=== PATIENT | male | born 1950 | race Caucasian/White ===

== ENCOUNTER 2017-12-16 14:05 | Observation (INO) ==
[2017-12-16] MEDS ORDERED: Aspirin 81 MG TAB.CHEW PO ONE (14:13)
--- NOTE | 2017-12-16 14:16 | Emergency Department Note ---
Disposition Clinical Impression: Chest pain, Paresthesia Disposition: Admitted As Inpatient Condition: Good General Adult HPI - General Chief complaint: ED General Medical Stated complaint: Facial / LUE Numbness Time Seen by Provider: 12/16/17 14:10 Source: patient Limitations: no limitations Nursing Notes Reviewed: Yes Vital Signs Reviewed: Yes - History of Present Illness Pain Scale: 4 - Related Data Allergies Allergy/AdvReac Type Severity Reaction Status Date / Time No Known Allergies Allergy Verified 12/16/17 14:13 Past Medical History - Past Medical History Medical history: Reports: other Psychiatric history: Reports: no psych history - Social History Smoking Status: Former smoker Smokeless Tobacco Status: No Alcohol use: Reports: none Drug use: Reports: none Physical Exam - General Limitations: no limitations General appearance: alert, in no apparent distress Course Vital Signs Temperature 98.1 F 12/16/17 14:08 Pulse Rate 80 12/16/17 14:08 Respiratory Rate 16 12/16/17 14:08 Blood Pressure 166/137 12/16/17 14:08 O2 Sat by Pulse Oximetry 97 12/16/17 14:08 Temperature 98.1 F 12/16/17 14:08 Pulse Rate 78 12/16/17 16:44 Respiratory Rate 16 12/16/17 16:44 Blood Pressure 170/64 12/16/17 16:44 O2 Sat by Pulse Oximetry 98 12/16/17 16:44 Oxygen Delivery Oxygen Delivery Room Air Medical Decision Making - Lab Data Result diagrams: 12/16/17 14:15 12/16/17 14:15 Lab Results 12/16/17 12/16/17 12/16/17 Range/Units 14:13 14:15 14:15 WBC 7.1 (4.3-11.1) K/mcL RBC 5.07 (4.19-5.50) M/mcL Hgb 15.2 (12.9-16.9) g/dL Hct 43.5 (37.5-50.1) % MCV 85.8 (83.0-100.0) fL MCH 30.0 (28.0-33.3) pg MCHC 34.9 (31.6-35.5) g/dL RDW 13.6 (11.5-14.5) % Plt Count 234 (140-400) K/mcL MPV 11.1 (9.4-12.4) fL Immature Gran % 0.4 (0-4) % Seg Neutrophils % 77.3 % Lymphocytes % 16.1 % Monocytes % 5.5 % Eosinophils % 0.3 % Basophils % 0.4 % Neutrophils # 5.5 (1.6-8.9) K/mcL Lymphocytes # 1.1 (0.6-4.6) K/mcL Monocytes # 0.4 (0.0-1.3) K/mcL Eosinophils # 0.0 (0.0-0.6) K/mcL Basophils # 0.0 (0.0-0.2) K/mcL Nucleated RBCs/100 WBC 0.3 H (0) /100 WBC PT 10.5 (9.4-12.1) Seconds INR 1.0 APTT 29.8 (26.0-36.0) Seconds Sodium (136-145) mEq/L Potassium (3.5-5.1) mEq/L Chloride (98-107) mEq/L Carbon Dioxide (23-29) mEq/L BUN (8-23) mg/dL Creatinine (0.70-1.30) mg/dL Est GFR ( Amer) (> 60) Est GFR (Non-Af Amer) (> 60) BUN/Creatinine Ratio (6-26) Glucose (70-105) mg/dL POC Glucose 82 (70-99) mg/dL Calculated Osmolality (280-300) Calcium (8.6-10.3) mg/dL Total Bilirubin (0.3-1.0) mg/dL Direct Bilirubin (0.0-0.2) mg/dL Indirect Bilirubin (0.0-1.2) mg/dL AST (13-39) Units/L ALT (7-52) Units/L Alkaline Phosphatase (34-104) Units/L Troponin I (< 0.04) ng/mL Serum Total Protein (6.4-8.9) g/dL Albumin (3.5-5.7) g/dL Globulin (2.4-3.5) g/dL Albumin/Globulin Ratio (1.1-2.2) Lipase (11-82) Units/L // Range/Units 14:15 WBC (4.3-11.1) K/mcL RBC (4.19-5.50) M/mcL Hgb (12.9-16.9) g/dL Hct (37.5-50.1) % MCV (83.0-100.0) fL MCH (28.0-33.3) pg MCHC (31.6-35.5) g/dL RDW (11.5-14.5) % Plt Count (140-400) K/mcL MPV (9.4-12.4) fL Immature Gran % (0-4) % Seg Neutrophils % % Lymphocytes % % Monocytes % % Eosinophils % % Basophils % % Neutrophils # (1.6-8.9) K/mcL Lymphocytes # (0.6-4.6) K/mcL Monocytes # (0.0-1.3) K/mcL Eosinophils # (0.0-0.6) K/mcL Basophils # (0.0-0.2) K/mcL Nucleated RBCs/100 WBC (0) /100 WBC PT (9.4-12.1) Seconds INR APTT (26.0-36.0) Seconds Sodium 139 (136-145) mEq/L Potassium 3.9 (3.5-5.1) mEq/L Chloride 107 (98-107) mEq/L Carbon Dioxide 24 (23-29) mEq/L BUN 16 (8-23) mg/dL Creatinine 0.96 (0.70-1.30) mg/dL Est GFR ( Amer) > 60 (> 60) Est GFR (Non-Af Amer) > 60 (> 60) BUN/Creatinine Ratio 17 (6-26) Glucose 101 (70-105) mg/dL POC Glucose (70-99) mg/dL Calculated Osmolality 289 (280-300) Calcium 9.4 (8.6-10.3) mg/dL Total Bilirubin 1.2 H (0.3-1.0) mg/dL Direct Bilirubin 0.2 (0.0-0.2) mg/dL Indirect Bilirubin 1.0 (0.0-1.2) mg/dL AST 25 (13-39) Units/L ALT 36 (7-52) Units/L Alkaline Phosphatase 112 H (34-104) Units/L Troponin I < 0.03 (< 0.04) ng/mL Serum Total Protein 6.8 (6.4-8.9) g/dL Albumin 4.4 (3.5-5.7) g/dL Globulin 2.4 (2.4-3.5) g/dL Albumin/Globulin Ratio 1.8 (1.1-2.2) Lipase 16 (11-82) Units/L Attestation Statement - Attestation Attestation: I examined this patient and my medical decision-making was reviewed with the Resident Physician. I agree with the documented findings, disposition and treatment plan as described except to the extent set forth below. Patient to the ED complaining of chest pain and paresthesias in his face and arm. Patient was coughing when he experienced the symptoms. States he felt nauseated and clammy. His been having some intermittent symptoms of left upper abdominal pain and indigestion for the past week. Patient has a history of coronary disease with one stent placed 10 years ago. He is not currently taking any medications besides aspirin and vitamins. Patient is in no distress on examination with clear lungs and heart regular rate and rhythm. Plan. Cardiac workup. Likely admission. EKG normal sinus with nonspecific ST changes. The patient is admitted. Workup was unremarkable. Concern with his risk and heart score. Chest X-Ray 12/16/17 14:14 IMPRESSION: No acute airspace disease identified. D/ / Shaka Hoover / Shaka Hoover Interpreting Provider: Shaka Hoover Abdomen/Pelvis CT 12/16/17 14:22 IMPRESSION: 1. No acute process in the abdomen or pelvis. 2. Moderately enlarged prostate. D/ / 12/16/2017 15:45:53 Bull Mancia MD / [facility] Interpreting Provider: Bull Mancia MD Head CT 12/16/17 14:22 IMPRESSION: No acute intracranial abnormality. Diffuse atrophic changes with findings suggesting chronic microvascular ischemia D/ / Rj Abel MD / Rj Abel MD Interpreting Provider: Rj bAel MD
[2017-12-16] MEDS ORDERED: Isovue-370 500 ML INFUS..BTL IV ONE (14:22)
[2017-12-16 14:31] LABS: Basophils % 0.4 %; Eosinophils % 0.3 %; Hematocrit 43.5 % (37.5-50.1); Hemoglobin 15.2 g/dL (12.9-16.9); Immature Granulocytes % 0.4 % (0-4); Lymphocytes # 1.1 K/mcL (0.6-4.6); Lymphocytes % 16.1 %; Mean Corpuscular HGB Conc 34.9 g/dL (31.6-35.5); Mean Corpuscular Volume 85.8 fL (83.0-100.0); Mean Platelet Volume 11.1 fL (9.4-12.4); Monocytes # 0.4 K/mcL (0.0-1.3); Monocytes % 5.5 %; Neutrophils # 5.5 K/mcL (1.6-8.9); Nucleated Red Blood Cells 0.3 /100 WBC (0); Platelet Count 234 K/mcL (140-400); Red Blood Count 5.07 M/mcL (4.19-5.50); Red Cell Distribution Width 13.6 % (11.5-14.5); Segmented Neutrophils % 77.3 %
[2017-12-16 14:39] LABS: Prothrombin Time 10.5 Seconds (9.4-12.1)
[2017-12-16 14:42] LABS: Activated Partial Thrombo Time 29.8 Seconds (26.0-36.0)
[2017-12-16 14:51] LABS: Troponin I < 0.03 ng/mL (< 0.04)
[2017-12-16 14:52] LABS: Alanine Aminotransferase 36 Units/L (7-52); Albumin 4.4 g/dL (3.5-5.7); Albumin/Globulin Ratio 1.8 (1.1-2.2); Alkaline Phosphatase 112 Units/L (34-104); Aspartate Amino Transferase 25 Units/L (13-39); BUN/Creatinine Ratio 17 (6-26); Bilirubin,Direct 0.2 mg/dL (0.0-0.2); Bilirubin,Total 1.2 mg/dL (0.3-1.0); Blood Urea Nitrogen 16 mg/dL (8-23); Calcium 9.4 mg/dL (8.6-10.3); Carbon Dioxide 24 mEq/L (23-29); Chloride 107 mEq/L (98-107); Globulin 2.4 g/dL (2.4-3.5); Glucose 101 mg/dL (70-105); Lipase 16 Units/L (11-82); Osmolality,Calculated 289 (280-300); Potassium 3.9 mEq/L (3.5-5.1); Sodium 139 mEq/L (136-145); Total Protein 6.8 g/dL (6.4-8.9); eGFR For African Americans > 60 (> 60); eGFR For Non-African Americans > 60 (> 60)
--- NOTE | 2017-12-16 15:49 | Emergency Department Note ---
Disposition Clinical Impression: Paresthesia Chest pain Qualifiers: Chest pain type: unspecified Qualified Code(s): R07.9 - Chest pain, unspecified Disposition: Admitted As Inpatient Condition: Good Referrals: Ayad Cole DO [Primary Care Provider] - Forms: ED Satisfaction Letter, Work/School Release General Adult HPI - General Chief complaint: ED General Medical Stated complaint: Facial / LUE Numbness Time Seen by Provider: 12/16/17 14:10 Source: patient Limitations: no limitations Nursing Notes Reviewed: Yes Vital Signs Reviewed: Yes - History of Present Illness HPI Narrative: Patient presents today for evaluation of epigastric or right upper quadrant abdominal pain chest pain and paresthesias to the face and left arm. Patient states symptoms have been going on for approximately 1 week with indigestion and burping. [place] he had epigastric pain which as he points to it is more left lower chest pain that he describes as a dull pain. Patient states he belches with no significant relief. Patient has had associated paresthesias to the face and arm during today's episode. Patient had associated diaphoresis. The patient was going to be seen by his primary care physician until it became more chest pain associated with paresthesias. She does still have left-sided abdominal pain which she describes as tender to palpation. No significant nausea or vomiting. Pain Scale: 4 - Related Data Allergies Allergy/AdvReac Type Severity Reaction Status Date / Time No Known Allergies Allergy Verified 12/16/17 14:13 Review of Systems: CONSTITUTIONAL: Diaphoresis No weight loss, fever, chills, weakness or fatigue. HEENT: Eyes: No visual changes. Ears, Nose, Throat: No hearing loss, difficulty talking or unable to swallow. SKIN: No rash or itching. CARDIOVASCULAR: Chest pain RESPIRATORY: Associated shortness of breath GASTROINTESTINAL: Abdominal pain with dyspepsia GENITOURINARY: No burning on urination or hematuria. NEUROLOGICAL: Paresthesias to left face and left arm No headache, dizziness, syncope, paralysis, ataxia. No change in bowel or bladder control. MUSCULOSKELETAL: No muscle pain, back pain, joint pain or stiffness. Past Medical History - Past Medical History Medical history: Reports: other Psychiatric history: Reports: no psych history - Social History Smoking Status: Former smoker Smokeless Tobacco Status: No Alcohol use: Reports: none Drug use: Reports: none Physical Exam General: Well appearing, nontoxic, no acute distress Head: Normocephalic Atraumatic Eyes: PERRL, EOMI ENT: Airway patent, no stridor Neck: supple, no meningismus Chest: Lungs clear to auscultation bilateral Cardiac: Regular rate and rhythm, no murmurs, rubs or gallops Abdomen: soft, mild tenderness to the left upper quadrant nondistended; no guarding, rebound, or tenderness to percussion Musculoskeletal: Calves symmetric, nontender, no palpable cord Skin: No rash, normal skin tone Neuro: Alert and Oriented to person, place, and time; No focal deficit, CN 2-12 symmetric and intact - General Limitations: no limitations General appearance: alert, in no apparent distress Course - Reevaluation(s) Reevaluation #1: Patient's blood work and CT scans do not show any abnormality. Patient's EKG is nonspecific with no sign of acute change. The patient's blood work is unremarkable. Upon reevaluation of the patient to patient's symptoms he describes left-sided chest epigastric pain that is worse throughout the day but not associated specifically with exertion associated nausea and diaphoresis with left arm tingling. Patient also has subjective face paresthesias. No objective findings as he has full sensation. Patient does have a history of CAD with [address] scan shows microvascular disease within the brain but no acute changes. Patient will need further evaluation of heart disease as well as potential further evaluation for TIA. Patient has high risk. Patient has had bedside discussion in regards to risks and benefits of further testing and is willing to stay for further evaluation. - Consultations Consultation #1: Discussed with hospitalist. Patient accepted for admission. Vital Signs Temperature 98.1 F 12/16/17 14:08 Pulse Rate 80 12/16/17 14:08 Respiratory Rate 16 12/16/17 14:08 Blood Pressure 166/137 12/16/17 14:08 O2 Sat by Pulse Oximetry 97 12/16/17 14:08 Temperature 98.1 F 12/16/17 14:08 Pulse Rate 78 12/16/17 16:44 Respiratory Rate 16 12/16/17 16:44 Blood Pressure 170/64 12/16/17 16:44 O2 Sat by Pulse Oximetry 98 12/16/17 16:44 Oxygen Delivery Oxygen Delivery Room Air Medical Decision Making - Medical Records Medical records reviewed: Yes I reviewed the patient's medical records. - Lab Data Lab results reviewed: Yes I reviewed the patient's lab results. Result diagrams: 12/16/17 14:15 12/16/17 14:15 Lab Results 12/16/17 12/16/17 12/16/17 Range/Units 14:13 14:15 14:15 WBC 7.1 (4.3-11.1) K/mcL RBC 5.07 (4.19-5.50) M/mcL Hgb 15.2 (12.9-16.9) g/dL Hct 43.5 (37.5-50.1) % MCV 85.8 (83.0-100.0) fL MCH 30.0 (28.0-33.3) pg MCHC 34.9 (31.6-35.5) g/dL RDW 13.6 (11.5-14.5) % Plt Count 234 (140-400) K/mcL MPV 11.1 (9.4-12.4) fL Immature Gran % 0.4 (0-4) % Seg Neutrophils % 77.3 % Lymphocytes % 16.1 % Monocytes % 5.5 % Eosinophils % 0.3 % Basophils % 0.4 % Neutrophils # 5.5 (1.6-8.9) K/mcL Lymphocytes # 1.1 (0.6-4.6) K/mcL Monocytes # 0.4 (0.0-1.3) K/mcL Eosinophils # 0.0 (0.0-0.6) K/mcL Basophils # 0.0 (0.0-0.2) K/mcL Nucleated RBCs/100 WBC 0.3 H (0) /100 WBC PT 10.5 (9.4-12.1) Seconds INR 1.0 APTT 29.8 (26.0-36.0) Seconds Sodium (136-145) mEq/L Potassium (3.5-5.1) mEq/L Chloride (98-107) mEq/L Carbon Dioxide (23-29) mEq/L BUN (8-23) mg/dL Creatinine (0.70-1.30) mg/dL Est GFR ( Amer) (> 60) Est GFR (Non-Af Amer) (> 60) BUN/Creatinine Ratio (6-26) Glucose (70-105) mg/dL POC Glucose 82 (70-99) mg/dL Calculated Osmolality (280-300) Calcium (8.6-10.3) mg/dL Total Bilirubin (0.3-1.0) mg/dL Direct Bilirubin (0.0-0.2) mg/dL Indirect Bilirubin (0.0-1.2) mg/dL AST (13-39) Units/L ALT (7-52) Units/L Alkaline Phosphatase (34-104) Units/L Troponin I (< 0.04) ng/mL Serum Total Protein (6.4-8.9) g/dL Albumin (3.5-5.7) g/dL Globulin (2.4-3.5) g/dL Albumin/Globulin Ratio (1.1-2.2) Lipase (11-82) Units/L //18 Range/Units 14:15 WBC (4.3-11.1) K/mcL RBC (4.19-5.50) M/mcL Hgb (12.9-16.9) g/dL Hct (37.5-50.1) % MCV (83.0-100.0) fL MCH (28.0-33.3) pg MCHC (31.6-35.5) g/dL RDW (11.5-14.5) % Plt Count (140-400) K/mcL MPV (9.4-12.4) fL Immature Gran % (0-4) % Seg Neutrophils % % Lymphocytes % % Monocytes % % Eosinophils % % Basophils % % Neutrophils # (1.6-8.9) K/mcL Lymphocytes # (0.6-4.6) K/mcL Monocytes # (0.0-1.3) K/mcL Eosinophils # (0.0-0.6) K/mcL Basophils # (0.0-0.2) K/mcL Nucleated RBCs/100 WBC (0) /100 WBC PT (9.4-12.1) Seconds INR APTT (26.0-36.0) Seconds Sodium 139 (136-145) mEq/L Potassium 3.9 (3.5-5.1) mEq/L Chloride 107 (98-107) mEq/L Carbon Dioxide 24 (23-29) mEq/L BUN 16 (8-23) mg/dL Creatinine 0.96 (0.70-1.30) mg/dL Est GFR ( Amer) > 60 (> 60) Est GFR (Non-Af Amer) > 60 (> 60) BUN/Creatinine Ratio 17 (6-26) Glucose 101 (70-105) mg/dL POC Glucose (70-99) mg/dL Calculated Osmolality 289 (280-300) Calcium 9.4 (8.6-10.3) mg/dL Total Bilirubin 1.2 H (0.3-1.0) mg/dL Direct Bilirubin 0.2 (0.0-0.2) mg/dL Indirect Bilirubin 1.0 (0.0-1.2) mg/dL AST 25 (13-39) Units/L ALT 36 (7-52) Units/L Alkaline Phosphatase 112 H (34-104) Units/L Troponin I < 0.03 (< 0.04) ng/mL Serum Total Protein 6.8 (6.4-8.9) g/dL Albumin 4.4 (3.5-5.7) g/dL Globulin 2.4 (2.4-3.5) g/dL Albumin/Globulin Ratio 1.8 (1.1-2.2) Lipase 16 (11-82) Units/L - Radiology Data Radiology results reviewed: Yes I reviewed the patient's radiology results. - EKG Data EKG #1 EKG attestation: Yes I reviewed and interpreted this EKG. EKG results narrative: EKG shows sinus rhythm with ventricular rate of 76. GA interval 146. QRS 80. QTC 416. Patient has no significant ST elevations or depressions. No previous EKG for comparison.
--- NOTE | 2017-12-16 17:37 | Internal Med History&Physical ---
Date of Encounter: 12/16/17 Time of Encounter: 17:37 Internal Medicine - H&P: HPI Chief complaint: CP History of present illness: Mr. Grayson is a 67 year old male Patient male with PMH of CAD s/p stent placement 10 years ago and currentely is not on any medication except for aspirin and PPIs presents today for evaluation of 1 week history right upper quadrant abdominal pain associated with chest pain and paresthesias of the face and left arm as well as diaphoresis. The patient was evaluated by the ER staff and both his laboratory data and ECGs were with no significant abnormalities. He was admitted to R/O ACS. Past Med Surg Social Fam HX - Past Medical History Medical history: other Psychiatric history: no psych history - Social History Smoking Status: Former smoker Smokeless Tobacco Status: No Alcohol use: none Drug use: none - Family History Mother Living Status: Age at : 34 Cause of : Leukemia Father Living Status: Cause of : Cancer Maternal Grandmother Living Status: Hx Family Neurologic Disorders: Yes (Alziehmers) Sister Living Status: Still Living Hx Family Cancer: Yes (Lymphoma) Internal Medicine - H&P: Meds Aspirin [Adult Aspirin] 81 mg PO DAILY 12/16/17 [History] Omeprazole [PriLOSEC] 20 mg PO DAILY 12/16/17 [History] Multivit-Min/FA/Lycopen/Lutein [A Thru Z Select Men 50+ Tablet] 1 tab PO DAILY 12/17/17 [History] Simvastatin [Zocor] 20 mg PO HS 30 Days #30 tablet 12/18/17 [Rx] 3 Allergy/AdvReac Type Severity Reaction Status Date / Time No Known Allergies Allergy Verified 12/16/17 14:13 All Systems PM: A 10-system review of systems was performed and is negative for pertinent findings except as documented above in the HPI. - Constitutional Constitutional: no chills, no fever(s), no night sweats - Cardiovascular Cardiovascular ROS IM: chest pain, diaphoresis, no dyspnea, no lightheadedness, no palpitations, no syncope - Respiratory Respiratory: no cough, no dyspnea, no wheezing, no excessive phlegm production - Gastrointestinal Gastrointestinal: abdominal pain, no diarrhea, no hematemesis, no hematochezia, no melena, no nausea, no vomiting - Musculoskeletal Musculoskeletal ROS IM: no numbness, no tingling - Constitutional Vitals: Temp Pulse Resp BP Pulse Ox 98.1 F 78 16 168/89 98 12/16/17 14:08 12/16/17 16:44 12/16/17 17:34 12/16/17 17:34 12/16/17 16:44 General appearance: Present: A&O X 3 - Head Head exam: Present: atraumatic, normocephalic - Eye Eye exam: Present: PERRL, conjuntiva pink, sclera anicteric Pupils: Present: PERRL - Neck Neck exam general surgery: Present: supple, trachea midline. Absent: lymphadenopathy - Respiratory Respiratory exam: Present: CTAB. Absent: accessory muscle use, rales, rhonchi, wheezes - Cardiovascular Cardiovascular exam: Present: RRR, +S1, +S2. Absent: diastolic murmur, gallop, rubs, systolic murmur - GI/Abdominal GI/Abdominal exam: Present: normal bowel sounds, soft, no peritoneal signs. Absent: distended, tenderness - Extremities Exam Extremities exam: Present: warm, radial pulses palpable and symmetrical. Absent : calf tenderness, cyanotic, pedal edema - Neurological Exam Neurological exam: Present: CN II-XII intact, oriented X3, no focal deficits. Absent: pronater drift, facial droop, speech deficit Internal Med - H&P Results - Labs CBC & Chem 7: 12/18/17 06:03 12/18/17 06:03 - Assessment and plan (1) Chest pain Status: Acute Assessment and plan: ASSESSMENT: - Chest pain DD *CAD *Muskuloskeletal CP - myofascial strain, costochondritis *GERD *Esophageal spasm *Pneumonia - no infiltrate on CXR PLAN: - cardiac enzymes x 2 q 8 hr - EKG now and in AM - ASA - O2 by NC to keep SpO2 greater than 92% - UA - Urine toxic screen - CBCD, BMP in AM - Fasting lipids - Morphine 2 mg IV q 2-4 hr PRN chest pain - Tylenol 650 mg PO q 4-6 hr PRN headache - Heparin 5000 U SQ BID - 2D Echo - Cardiology consult Qualifiers: Chest pain type: unspecified Qualified Code(s): R07.9 - Chest pain, unspecified (2) DVT prophylaxis Status: Acute Assessment and plan: We will place SCDs - Time Spent With Patient Total time spent is greater than 50% in coordination of care (as documented) at patient's floor/unit and/or counseling patient:
[2017-12-16 20:01] LABS: Bilirubin,Urine Negative (Negative); Blood,Urine Negative (Negative); Clarity,Urine Clear (Clear); Color,Urine Yellow (Yellow); Glucose,Urine (UA) Normal (Normal); Ketones,Urine 15 mg/dL (Negative); Leukocyte Esterase,Urine Negative (Negative); Nitrite,Urine Negative (Negative); Protein,Urine Negative (Neg-Trace); Specific Gravity,Urine > 1.030 (1.010-1.025); Urobilinogen,Urine Normal (Normal)
[2017-12-16] MEDS ORDERED: *HR* HYDROcodone/Acet 5/325 mg TABLET PO PRN (20:30)
[2017-12-16] MEDS ORDERED: Acetaminophen 325 MG TABLET PO PRN (20:30)
[2017-12-16] MEDS ORDERED: Naloxone 0.4 MG/ML INJ IVP PRN (20:30)
[2017-12-16] MEDS: 0.9 % Sodium Chloride 1,000 ML IVC SCH (20:56)
[2017-12-17] MEDS: 0.9 % Sodium Chloride 1,000 ML IVC SCH (04:56)
[2017-12-17] MEDS: *HR* Heparin 5,000 UNIT/ML VIAL SQ SCH ×2 (06:14→17:07)
[2017-12-17] MEDS: Aspirin Enteric Coated 81 MG Tablet PO SCH (07:49)
[2017-12-17] MEDS ORDERED: *HR* Promethazine 25 MG/ML VIAL IVP ONE (09:20)
[2017-12-17] MEDS ORDERED: Ondansetron 4 MG/2 ML VIAL IVP PRN (09:21)
[2017-12-17 10:30] LABS: Basophils % 0.4 %; Eosinophils # 0.1 K/mcL (0.0-0.6); Immature Granulocytes % 0.2 % (0-4); Lymphocytes # 0.7 K/mcL (0.6-4.6); Mean Corpuscular HGB Conc 34.1 g/dL (31.6-35.5); Mean Corpuscular Hemoglobin 29.9 pg (28.0-33.3); Mean Corpuscular Volume 87.4 fL (83.0-100.0); Mean Platelet Volume 11.1 fL (9.4-12.4); Monocytes # 0.3 K/mcL (0.0-1.3); Monocytes % 5.9 %; Platelet Count 189 K/mcL (140-400); Red Blood Count 4.69 M/mcL (4.19-5.50); Red Cell Distribution Width 13.7 % (11.5-14.5); Segmented Neutrophils % 79.5 %
[2017-12-17 10:37] LABS: INR 1.2; Prothrombin Time 12.5 Seconds (9.4-12.1)
[2017-12-17 10:39] LABS: Activated Partial Thrombo Time 29.6 Seconds (26.0-36.0)
[2017-12-17 10:50] LABS: Alanine Aminotransferase 28 Units/L (7-52); Albumin 3.7 g/dL (3.5-5.7); Albumin/Globulin Ratio 1.7 (1.1-2.2); Alkaline Phosphatase 86 Units/L (34-104); Aspartate Amino Transferase 18 Units/L (13-39); BUN/Creatinine Ratio 16 (6-26); Bilirubin,Total 1.4 mg/dL (0.3-1.0); Blood Urea Nitrogen 14 mg/dL (8-23); Calcium 8.7 mg/dL (8.6-10.3); Carbon Dioxide 27 mEq/L (23-29); Chloride 111 mEq/L (98-107); Cholesterol 233 mg/dL (< 200); Globulin 2.2 g/dL (2.4-3.5); Glucose 120 mg/dL (70-105); HDL Cholesterol 39 mg/dL (40-59); LDL Cholesterol,Calculated 180 mg/dL (0-99); Osmolality,Calculated 292 (280-300); Phosphorous 2.2 mg/dL (2.7-4.5); Potassium 3.6 mEq/L (3.5-5.1); Sodium 140 mEq/L (136-145); Total Protein 5.9 g/dL (6.4-8.9); Triglycerides 71 mg/dL (< 150); eGFR For African Americans > 60 (> 60); eGFR For Non-African Americans > 60 (> 60)
--- NOTE | 2017-12-17 12:17 | Internal Med Progress Note ---
Date of Encounter: 12/17/17 Time of Encounter: 12:13 - Assessment and plan (1) Chest pain Current Visit: Yes Status: Acute Assessment and plan: Nondiabetic, former smoker, obese patient presenting with midsternal chest pain with radiation to epigastrium, and LUQ associated with nausea/vomiting. Initial troponin negative, ECG without any ST changes concerning for ischemia. CXR negative for acute pulmonary process. No recent cardiac workup on file. Per my assessment this morning the patient is denying any chest pain. Continuing to have nausea/vomiting with meals PLAN: - cardiac enzymes x 2 q 6 hr starting now - EKG now and in AM - ASA daily - O2 by NC to keep SpO2 greater than 92% - UA negative - CBCD, BMP in AM - Fasting lipids reveals total cholesterol of 233, VLDL 14, LDL 180, HDL 39 with a cholesterol/HDL ratio of 6 - Lipase 16 - Heparin 5000 U SQ BID - 2D Echo-results pending - Consider cardiology consult pending results of stress test - Consider stress test Monday Qualifiers: Chest pain type: unspecified Qualified Code(s): R07.9 - Chest pain, unspecified (2) Nausea & vomiting Current Visit: Yes Status: Acute Assessment and plan: Nausea and vomiting X one month. Etiology unclear. Patient reports that he has been having nausea, vomiting and abdominal pain associated with eating for the last month. Denies any hematemesis, no cancer history, no family history of cancer. Former smoker. Denies any unintentional concerning weight loss, night sweats, malaise or fatigue. Noting he is having left upper quadrant abdominal pain and epigastric pain with eating. Antiemetics Oral pain medicationPRN GI consult, call in the morning as nobody is property utilization officer for the weekend; this is nonemergent Qualifiers: Vomiting type: unspecified Vomiting Intractability: unspecified Qualified Code(s): R11.2 - Nausea with vomiting, unspecified (3) Paresthesia Current Visit: Yes Status: Resolved Assessment and plan: Paresthesias have resolved, continue monitor for return of symptoms Neurological examination nonfocal CT head negative for acute intracranial abnormality (4) Left upper quadrant abdominal pain of unknown etiology Current Visit: Yes Status: Acute Assessment and plan: See above (5) DVT prophylaxis Current Visit: Yes Status: Acute Assessment and plan: Subcutaneous heparin - Time Spent With Patient Total time spent is greater than 50% in coordination of care (as documented) at patient's floor/unit and/or counseling patient: Greater than 35 minutes - Subjective Interval history: Mr. Grayson is a 67 year old male Patient male with PMH of CAD s/p stent placement 10 years ago and currentely is not on any medication except for aspirin and PPIs presents today for evaluation of 1 week history left upper quadrant abdominal pain associated with chest pain and paresthesias of the face and left arm as well as diaphoresis. Patient seen and examined at bedside today, reports chest pain is improved but continues to endorse epigastric and left upper quadrant pain, nausea and vomiting exacerbated by eating. He reports that he repeats he began to feel nauseous and sometimes vomits. Denies any hematemesis, no prior history of ulcers. Has not had a thorough GI evaluation. Continues to have nausea/ vomiting with eating. Dry heaving during examination this morning. Patient denies paresthesias to the face and arm this morning. They have not returned throughout this admission. CT of head negative for acute intracranial abnormality. Cardiology consult at - Constitutional Vitals: Temp Pulse Resp BP Pulse Ox 98.3 F 66 17 140/85 96 12/17/17 11:04 12/17/17 11:04 12/17/17 11:04 12/17/17 11:04 12/17/17 11:04 General appearance: Present: A&O X 3 - Head Head exam: Present: atraumatic, normocephalic - Eye Eye exam: Present: PERRL, conjuntiva pink, sclera anicteric Pupils: Present: PERRL - Neck Neck exam general surgery: Present: supple, trachea midline. Absent: lymphadenopathy - Respiratory Respiratory exam: Present: CTAB. Absent: accessory muscle use, rales, rhonchi, wheezes - Cardiovascular Cardiovascular exam: Present: RRR, +S1, +S2. Absent: diastolic murmur, gallop, rubs, systolic murmur - GI/Abdominal GI/Abdominal exam: Present: normal bowel sounds, soft, tenderness (LUQ), no peritoneal signs. Absent: distended, firm, guarding, hepatomegaly, mass, pulsatile mass, rebound Additional comments: Dry heaving during examination, improved with Phenergan dose - Extremities Exam Extremities exam: Present: normal inspection, warm, radial pulses palpable and symmetrical. Absent: calf tenderness, cyanotic, pedal edema - Neurological Exam Neurological exam: Present: CN II-XII intact, oriented X3, no focal deficits. Absent: pronater drift, facial droop, speech deficit - Skin Skin exam: Present: dry, intact Internal Medicine: Result - Labs CBC & Chem 7: 12/17/17 10:14 12/17/17 10:14 Labs: Short CBC 12/17/17 Range/Units 10:14 WBC 5.1 (4.3-11.1) K/mcL Hgb 14.0 (12.9-16.9) g/dL Hct 41.0 (37.5-50.1) % Plt Count 189 (140-400) K/mcL Neutrophils # 4.0 (1.6-8.9) K/mcL BMP 12/17/17 10:14 Sodium 140 Potassium 3.6 Chloride 111 H Carbon Dioxide 27 BUN 14 Creatinine 0.86 Glucose 120 H Calcium 8.7 Liver Function 12/17/17 Range/Units 10:14 Total Bilirubin 1.4 H (0.3-1.0) mg/dL AST 18 (13-39) Units/L ALT 28 (7-52) Units/L Alkaline Phosphatase 86 (34-104) Units/L Albumin 3.7 (3.5-5.7) g/dL - ABG Interpretation ABG results: PT/INR, D-dimer PT 12.5 Seconds (9.4-12.1) H 12/17/17 10:14 - Prior EKG Data Prior EKG available for review: no EKG comments: ECG, normal sinus rhythm no ST changes suggestive of ischemia per my review 12/17/17 12:20 - Impressions Impressions Chest X-Ray 12/16/17 20:33 IMPRESSION: No acute process. Findings suggestive of underlying COPD. D/ / Flaco Sanches MD / Flaco Sanches MD Interpreting Provider: Flaco Sanches MD Impressions Chest X-Ray 12/16/17 14:14 IMPRESSION: No acute airspace disease identified. D/ / Shaka Hoover / Shaka Hoover Interpreting Provider: Shaka Hoover Abdomen/Pelvis CT 12/16/17 14:22 IMPRESSION: 1. No acute process in the abdomen or pelvis. 2. Moderately enlarged prostate. D/ / 12/16/2017 15:45:53 Bull Mancia MD / nakul Interpreting Provider: Bull Mancia MD Head CT 12/16/17 14:22 IMPRESSION: No acute intracranial abnormality. Diffuse atrophic changes with findings suggesting chronic microvascular ischemia D/ / Rj Abel MD / Rj Abel MD Interpreting Provider: Rj Abel MD Chest X-Ray 12/16/17 20:33 IMPRESSION: No acute process. Findings suggestive of underlying COPD. D/ / Flaco Sanches MD / lFaco Sanches MD Interpreting Provider: Flaco Sanches MD Consult Discharge Plan - Plan Referrals: Ayad Cole DO [Primary Care Provider] -
[2017-12-17] MEDS: Sucralfate 1 GM TABLET PO SCH ×2 (17:07→21:15)
[2017-12-18] MEDS: *HR* Heparin 5,000 UNIT/ML VIAL SQ SCH ×2 (05:10→18:18)
[2017-12-18] MEDS ORDERED: Regadenoson 0.4 MG/5 ML SYRINGE IVP ONE (05:30)
[2017-12-18 07:20] LABS: BUN/Creatinine Ratio 18 (6-26); Blood Urea Nitrogen 17 mg/dL (8-23); Calcium 8.8 mg/dL (8.6-10.3); Carbon Dioxide 26 mEq/L (23-29); Chloride 111 mEq/L (98-107); Glucose 89 mg/dL (70-105); Osmolality,Calculated 295 (280-300); Potassium 3.8 mEq/L (3.5-5.1); Sodium 142 mEq/L (136-145); eGFR For African Americans > 60 (> 60); eGFR For Non-African Americans > 60 (> 60)
[2017-12-18 07:23] LABS: Basophils % 0.4 %; Eosinophils # 0.1 K/mcL (0.0-0.6); Eosinophils % 2.1 %; Hematocrit 43.3 % (37.5-50.1); Hemoglobin 14.4 g/dL (12.9-16.9); Immature Granulocytes % 0.2 % (0-4); Lymphocytes # 1.3 K/mcL (0.6-4.6); Lymphocytes % 25.4 %; Mean Corpuscular HGB Conc 33.3 g/dL (31.6-35.5); Mean Corpuscular Hemoglobin 29.1 pg (28.0-33.3); Mean Corpuscular Volume 87.7 fL (83.0-100.0); Mean Platelet Volume 11.5 fL (9.4-12.4); Monocytes # 0.5 K/mcL (0.0-1.3); Monocytes % 9.1 %; Neutrophils # 3.3 K/mcL (1.6-8.9); Platelet Count 207 K/mcL (140-400); Red Blood Count 4.94 M/mcL (4.19-5.50); Red Cell Distribution Width 13.7 % (11.5-14.5); Segmented Neutrophils % 62.8 %
[2017-12-18] MEDS: Aspirin Enteric Coated 81 MG Tablet PO SCH (10:19)
[2017-12-18] MEDS: Sucralfate 1 GM TABLET PO SCH ×3 (10:19→18:18)
--- NOTE | 2017-12-18 13:24 | Gastroenterology Consult Note ---
<Rere Malin - Last Filed: 12/18/17 13:18> Date of Encounter: 12/18/17 Time of Encounter: 11:00 - Assessment and plan (1) Nausea & vomiting Current Visit: Yes Status: Acute Assessment and plan: Has been ongoing for several months. CT abdomen was negative. plan for EGD today to r/o esophagitis, gastritis, duodenitis, PUD, MW tear, or AVM. Keep patient NPO for now. Patient educated regarding lifestyle modifications including: (1) avoidance of foods that may precipitate reflux (eg, coffee, alcohol, chocolate, fatty foods) . (2) avoidance of acidic foods that may precipitate heartburn (eg, citrus, carbonated drinks, spicy foods). (3) adoption of behaviors that may reduce esophageal acid exposure (see weight loss, smoking cessation, raising the head of the bed, and avoiding recumbency for 2-3 hours after meals). Qualifiers: Vomiting type: unspecified Vomiting Intractability: unspecified Qualified Code(s): R11.2 - Nausea with vomiting, unspecified (2) Left upper quadrant abdominal pain of unknown etiology Current Visit: Yes Status: Acute - Time Spent With Patient Total time spent is greater than 50% in coordination of care (as documented) at patient's floor/unit and/or counseling patient: GI History of Present Illness - Data of Consult Patient: new to practice Consult date: 12/18/17 Requesting Physician: Joanne Arita - Consult Narrative Reason for consult: LUQ abdominal pain, nausea and vomiting History of present illness: Mr. Grayson is a 67 year old male patient male with PMH of CAD s/p stent placement 10 years ago and currentely is not on any medication except for aspirin and PPIs. He has a longstanding history of GERD, states was well controlled on prescription prevacid and then his insurance stopped paying for it. He has been taking OTC prevacid with less relief. He presented with right upper quadrant abdominal pain associated with chest pain and paresthesias of the face and left arm as well as diaphoresis. The patient was evaluated by the ER staff and both his laboratory data and ECGs were with no significant abnormalities. He was admitted to R/O ACS. CT abdomen shows no acute process. LVEF 60-65%. Stress test was normal. He states he has been having the same pain for several months as well as nausea and vomiting after he eats. procedures: none NSAIDS: asa 81 mg Anticoagulants: none Past Med Surg Social Fam HX - Past Medical History Medical history: other Psychiatric history: no psych history - Social History Smoking Status: Former smoker Smokeless Tobacco Status: No Alcohol use: none Drug use: none - Family History Mother Living Status: Age at : 34 Cause of : Leukemia Father Living Status: Cause of : Cancer Maternal Grandmother Living Status: Hx Family Neurologic Disorders: Yes (Alziehmers) Sister Living Status: Still Living Hx Family Cancer: Yes (Lymphoma) Review of Systems: GI: as per [place] GENERAL: denies fever, has some chills EYES: denies yellow discoloration ENT: denies pain with swallowing or difficulty swallowing CARDIO: denies chest pain, palpitations RESP: No Shortness of breath with exertion : denies change in color of urine NEURO: denies any weakness HEME: Denies any bruising MS: denies joint pain, joint swelling or back pain. DERM: denies rash or itching PSYCH: Denies history of anxiety or depression - Constitutional Vitals: Temp Pulse Resp BP Pulse Ox 97.8 F 64 15 132/90 97 12/18/17 11:11 12/18/17 11:11 12/18/17 11:11 12/18/17 11:11 12/18/17 11:11 Exam: CONSTITUTIONAL:~alert, no acute distress.~HEAD:~normocephalic.~EYES:~no jaundice.~NECK:~no obvious swelling.~HEART:~regular rate and rhythm, no murmurs. ~LUNGS:~bilateral good air entry.~ABDOMEN:~non distended, soft, non tander, no masses pulpable, no organomegaly.~RECTAL EXAM:~Deferred.~EXTREMITIES:~no clubbing, cyanosis or edema.~SKIN:~no stigmata of chronic liver disease.~ NEUROLOGIC:~no obvious focal defect.~~~~ Results - Labs CBC & Chem 7: 12/18/17 06:03 12/18/17 06:03 Labs: Last Result Calcium 8.8 mg/dL (8.6-10.3) 12/18/17 06:03 Troponin I < 0.03 ng/mL (< 0.04) 12/17/17 19:12 Triglycerides 71 mg/dL (< 150) 12/17/17 10:14 Entire Visit Hgb 14.4 g/dL (12.9-16.9) 12/18/17 06:03 Hct 43.3 % (37.5-50.1) 12/18/17 06:03 PT 12.5 Seconds (9.4-12.1) H 12/17/17 10:14 Total Bilirubin 1.4 mg/dL (0.3-1.0) H 12/17/17 10:14 AST 18 Units/L (13-39) 12/17/17 10:14 ALT 28 Units/L (7-52) 12/17/17 10:14 Lipase 16 Units/L (11-82) 12/16/17 14:15 - ABG ABG results: PT/INR, D-dimer PT 12.5 Seconds (9.4-12.1) H 12/17/17 10:14 - Impressions Impressions Echocardiogram 12/17/17 20:54 Impressions: LVEF 60-65%. Normal LV chamber size, wall thickness and function. Moderate left ventricular diastolic dysfunction. Normal right ventricular structure and function. No evidence of pulmonary hypertension. No significant valvular dysfunction. Findings: Study Quality * Technically adequate exam. ECG Findings * Normal sinus rhythm. Left Ventricle * LVEF 60-65%. * Normal LV chamber size, wall thickness and function. * Moderate left ventricular diastolic dysfunction. Right Ventricle * Normal right ventricular structure and function. Left Atrium * Mild to moderately dilated left atrium. Right Atrium * Mildly dilated right atrium. Aortic Valve * Trileaflet aortic valve with normal function. * No aortic stenosis. * No aortic regurgitation. Mitral Valve * Normal mitral valve structure and function. * No mitral regurgitation. * No mitral stenosis. Tricuspid Valve * Normal tricuspid valve structure and function. * Trace tricuspid regurgitation. * No evidence of pulmonary hypertension. Pulmonic Valve * Pulmonic valve is not well visualized. Aorta * Normally sized aortic root. Pericardium * The pericardium appears normal. IVC * Normal IVC dimensions and inspiratory collapse. Pulmonary Artery * Normal visualized portions of the main pulmonary artery. Consult Discharge Plan - Plan Referrals: Ayad Cole DO [Primary Care Provider] - 12/26/17 12:00 pm <Gul,June - Last Filed: 12/18/17 17:34> Date of Encounter: 12/18/17 Time of Encounter: 14:00 - Time Spent With Patient Total time spent is greater than 50% in coordination of care (as documented) at patient's floor/unit and/or counseling patient: GI History of Present Illness - Data of Consult Requesting Physician: Joanne Arita - Consult Narrative History of present illness: Mr. Grayson is a 67 year old male - Constitutional Vitals: Temp Pulse Resp BP Pulse Ox 97.9 F 86 14 132/84 96 12/18/17 14:43 12/18/17 16:00 12/18/17 16:00 12/18/17 16:00 12/18/17 16:00 Results - Labs CBC & Chem 7: 12/18/17 06:03 12/18/17 06:03 Labs: Last Result Calcium 8.8 mg/dL (8.6-10.3) 12/18/17 06:03 Troponin I < 0.03 ng/mL (< 0.04) 12/17/17 19:12 Triglycerides 71 mg/dL (< 150) 12/17/17 10:14 Entire Visit Hgb 14.4 g/dL (12.9-16.9) 12/18/17 06:03 Hct 43.3 % (37.5-50.1) 12/18/17 06:03 PT 12.5 Seconds (9.4-12.1) H 12/17/17 10:14 Total Bilirubin 1.4 mg/dL (0.3-1.0) H 12/17/17 10:14 AST 18 Units/L (13-39) 12/17/17 10:14 ALT 28 Units/L (7-52) 12/17/17 10:14 Lipase 16 Units/L (11-82) 12/16/17 14:15 - ABG ABG results: PT/INR, D-dimer PT 12.5 Seconds (9.4-12.1) H 12/17/17 10:14 - Impressions Impressions Echocardiogram 12/17/17 20:54 Impressions: LVEF 60-65%. Normal LV chamber size, wall thickness and function. Moderate left ventricular diastolic dysfunction. Normal right ventricular structure and function. No evidence of pulmonary hypertension. No significant valvular dysfunction. Findings: Study Quality * Technically adequate exam. ECG Findings * Normal sinus rhythm. Left Ventricle * LVEF 60-65%. * Normal LV chamber size, wall thickness and function. * Moderate left ventricular diastolic dysfunction. Right Ventricle * Normal right ventricular structure and function. Left Atrium * Mild to moderately dilated left atrium. Right Atrium * Mildly dilated right atrium. Aortic Valve * Trileaflet aortic valve with normal function. * No aortic stenosis. * No aortic regurgitation. Mitral Valve * Normal mitral valve structure and function. * No mitral regurgitation. * No mitral stenosis. Tricuspid Valve * Normal tricuspid valve structure and function. * Trace tricuspid regurgitation. * No evidence of pulmonary hypertension. Pulmonic Valve * Pulmonic valve is not well visualized. Aorta * Normally sized aortic root. Pericardium * The pericardium appears normal. IVC * Normal IVC dimensions and inspiratory collapse. Pulmonary Artery * Normal visualized portions of the main pulmonary artery. - Attending Attestation I have personally performed a face to face evaluation on this patient. I have reviewed and agree with the care plan. History and Exam by me shows: Pt seen patient with the nausea and vomiting and also left-sided abdominal pain CT of the abdomen is negative. Recommendation EGD to rule out gastric causes for patient's symptom
[2017-12-18] MEDS ORDERED: Naloxone 0.4 MG/ML INJ IVP PRN (13:35)
--- NOTE | 2017-12-18 13:40 | Event Note ---
Date of Encounter: 12/18/17 Time of Encounter: 13:36 A review by [facility] and a member of the utilization review committee has determined that the status is to be changed to observation using a condition code 44. I Korey Duncan am in agreement that the status is changed to observation.
--- NOTE | 2017-12-18 14:26 | Electrocardiograph Report ---
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
--- NOTE | 2017-12-18 14:33 | Anesthesia Evaluation PreOp ---
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 ENGINEER History: Denies Any Significant HX Other Medical History: Denies Any Significant HX Anesthesia History: No Prior Anesthetic Complications Alcohol Use: none Drug use: none Medications and Allergies Aspirin [Adult Aspirin] 81 mg PO DAILY 12/16/17 [History] Omeprazole [PriLOSEC] 20 mg PO DAILY 12/16/17 [History] Multivit-Min/FA/Lycopen/Lutein [A Thru Z Select Men 50+ Tablet] 1 tab PO DAILY 12/17/17 [History] 3 Allergy/AdvReac Type Severity Reaction Status Date / Time No Known Allergies Allergy Verified 12/16/17 14:13 - Meds/Allergy Pre-op Review Medications Reviewed: Yes Allergies Reviewed: Yes Beta Blockers on Current Med List: No Anesthesia Results - Labs 12/18/17 06:03 12/18/17 06:03 - Imaging Additional studies: ECHO EF 60% Anesthesia Exam Vital Signs/O2 Sat/Glucose, Most Current Temp Pulse Resp BP Pulse Ox 12/18/17 11:11 97.8 F 64 15 132/90 97 Height: 6'2 Weight: 223 lbs NPO (# of Hours): MN Pain Scale: 0 - HEENT Pupil (Motor): Pupils equal, EOMI Mallampati: II Oral Opening: Greater than 3 - ENVIRONMENTAL COMPLIANCE ENGINEER LOC: Oriented ENVIRONMENTAL COMPLIANCE ENGINEER Motor: Normal RUE, Normal LUE, Normal RLE, Normal LLE, Normal Face ENVIRONMENTAL COMPLIANCE ENGINEER Sensory: Normal: RUE, LUE, RLE, LLE, Face - Cardiac Rhythm: Regular Murmur: None JVD: No Carotid Bruit: No - Pulmonary Breath Sounds: bilateral Clear Respiratory Effort: Symmetrical Anesthesia Assess/Plan ASA Score: 3 (CAD) Modified Spreckels Scale for Level of Consciousness: Cooperative, oriented, and tranquil Anesthetic Plan: MAC Monitoring Plan: Standard Monitors Recovery Plan: Other (Discussed MAC, agrees to proceed)
--- NOTE | 2017-12-18 14:38 | Electrocardiograph Report ---
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
--- NOTE | 2017-12-18 14:38 | Electrocardiograph Report ---
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
[2017-12-18 16:36] VITALS: BP 132/84
--- NOTE | 2017-12-18 18:25 | Discharge Summary ---
- NOTES TO OUTPATIENT PROVIDER Notes to Outpatient Provider: Left upper quadrant abdominal pain associated with chest pain, paresthesias of the face and arm. Neuro workup unremarkable, paresthesias subsided. Never really had numbness/tingling of face more just burning sensation that was transient. ACS rule out unremarkable negative stress test. Also, patient was worked up for abdominal pain, nausea vomiting with meals 1 month. EGD completed, no concerning findings biopsies taken please follow biopsy results. Patient instructed to follow-up with PCP in one week of discharge Orders not resulted at time of discharge: Pending orders 11/29/17 05:52 ECG 12 lead ECG [ECG] Stat 12/16/17 20:54 ECG 12 lead ECG [ECG] Routine 12/17/17 12:57 NM homa perf SPECT multi [NM] Routine 12/18/17 14:54 Surgical Pathology [PTH] Routine Date of Encounter: 12/18/17 Time of Encounter: 18:23 - Discharge Diagnosis (1) Chest pain Priority: Primary Status: Acute Assessment and Plan: Nondiabetic, former smoker, obese patient presenting with midsternal chest pain with radiation to epigastrium, and LUQ associated with nausea/vomiting. ACS rule out found to be negative with negative troponin 3, pharmacological stress negative for ischemia, imaging negative for ischemia, ECG without any ST changes concerning for ischemia. TTE with LVEF 60-65%, moderate left ventricular diastolic dysfunction, normal right ventricular structure and function, no evidence of pulmonary hypertension, no significant valvular dysfunction. CXR negative for acute pulmonary process. Throughout stay patient never had return of chest pain, has been hemodynamically stable. With workup negative he is medically ready for discharge. He has been instructed to follow-up with PCP in 1 week. (2) Nausea & vomiting Priority: Secondary Status: Resolved Assessment and Plan: Nausea and vomiting X one month with abdominal pain and LUQ. Exacerbated by meals. Etiology unclear. EGD completed concerning findings preliminary results Biopsy sent please follow up on biopsy results with PCP Qualifiers: Vomiting type: unspecified Vomiting Intractability: unspecified Qualified Code(s): R11.2 - Nausea with vomiting, unspecified (3) Paresthesia Priority: Secondary Status: Resolved Assessment and Plan: Paresthesias have resolved, continue monitor for return of symptoms Neurological examination nonfocal CT head negative for acute intracranial abnormality (4) Left upper quadrant abdominal pain of unknown etiology Priority: Secondary Status: Acute Assessment and Plan: See above (5) DVT prophylaxis Priority: Secondary Status: Acute Hospital course: Mr. Grayson is a 67 year old male Please see assessment and plan for hospital course Discharge discussed with: patient, family, nurse - Time Spent with Patient Total time spent providing and/or coordinating discharge services: Less than 30 minutes - Discharge Medications Home Medications: Aspirin [Adult Aspirin] 81 mg PO DAILY 12/16/17 [History] Omeprazole [PriLOSEC] 20 mg PO DAILY 12/16/17 [History] Multivit-Min/FA/Lycopen/Lutein [A Thru Z [employer] Men 50+ Tablet] 1 tab PO DAILY 12/17/17 [History] Simvastatin [Zocor] 20 mg PO HS 30 Days #30 tablet 12/18/17 [Rx] Allergies/Adverse Reactions: 3 Allergy/AdvReac Type Severity Reaction Status Date / Time No Known Allergies Allergy Verified 12/16/17 14:13 Date of admission: 12/16/17 17:21 Primary care physician: Urbano Morales Consults: 12/16/17 20:54 Consult to Nurse Navigator [CONS] Routine Comment: 12/17/17 12:22 Consult to Gastroenterology [CONS] Routine Consulting Provider: Gastroenterology Leda Reason for Consult: Left upper quadrant abdominal pain, nausea vomiting with eating X1 month Time Notified: 12:23 Call Completed: Yes Discharging clinician: Korey Duncan Anticipated date of discharge: 12/18/17 - Constitutional Vitals: Temp Pulse Resp BP Pulse Ox 97.9 F 86 14 132/84 96 12/18/17 14:43 12/18/17 16:00 12/18/17 16:00 12/18/17 16:00 12/18/17 16:00 General appearance: Present: A&O X 3 - Head Head exam: Present: atraumatic, normocephalic - Eye Eye exam: Present: PERRL, conjuntiva pink, sclera anicteric Pupils: Present: PERRL - Neck Neck exam general surgery: Present: supple, trachea midline. Absent: lymphadenopathy - Respiratory Respiratory exam: Present: CTAB. Absent: accessory muscle use, rales, rhonchi, wheezes - Cardiovascular Cardiovascular exam: Present: RRR, +S1, +S2. Absent: diastolic murmur, gallop, rubs, systolic murmur - GI/Abdominal GI/Abdominal exam: Present: normal bowel sounds, soft, no peritoneal signs. Absent: distended, tenderness - Extremities Exam Extremities exam: Present: warm, radial pulses palpable and symmetrical. Absent : calf tenderness, cyanotic, pedal edema - Neurological Exam Neurological exam: Present: CN II-XII intact, oriented X3, no focal deficits. Absent: pronater drift, facial droop, speech deficit - Skin Skin exam: Present: dry, intact - Patient Status Disposition: Home, Self-Care Condition: Good Overall status at discharge: patient is back to baseline - Discharge Instructions Follow Up With: Ayad Cole DO [Primary Care Provider] - 12/26/17 12:00 pm - Diet and Activity Activity: increase activity as tolerated Diet: advance to your usual diet
== END 2017-12-18 19:07 | disposition home or self-care (01) ==
LOC: 3BNU 14:05 → EMEROO 14:05 → 3BNU 17:34
PROVIDERS: ADMIT Internal Medicine Nephrology; ATTEND Internal Medicine Nephrology
PROC: ENDOEBX (2017-12-18 14:00)